=== PATIENT | male | born 1940 | race Caucasian/White ===

== ENCOUNTER 2022-02-23 15:21 | Emergency (ER) | payer OTHER ==
[~2022-02-23] VITALS: Ht 175.3 cm; Wt 88.5 kg
[2022-02-23 15:29] VITALS: BP 155/82
[2022-02-23] MEDS ORDERED: ACETAMINOPHEN EXTRA STRENGTH 500 MG TAB PO ONE (15:35)
[2022-02-23] MEDS ORDERED: ACETAMINOPHEN EXTRA STRENGTH 500 MG TAB ONE (15:38)
--- NOTE | 2022-02-23 15:40 | NUR ---
PATIENT TO LOBBY
--- NOTE | 2022-02-23 15:44 | NUR ---
PT BIBA STAND PIVOT TO BED 2
[2022-02-23 16:11] LABS: BASOPHILS % (AUTO) 0.2 % (0.0-2.0); EOSINOPHILS % (AUTO) 0.5 % (0.0-4.0); HEMATOCRIT 43.1 % (36-52); HEMOGLOBIN 14.5 g/dL (12.0-18.0); LYMPHOCYTES # (AUTO) 0.4 K/uL (2.0-11.5); LYMPHOCYTES % (AUTO) 7.1 % (20.5-51.1); MEAN CORPUSCULAR HEMOGLOBIN 31 pg (27-31); MEAN CORPUSCULAR HGB CONC 34 g/dL (33-37); MONOCYTES # (AUTO) 0.5 K/uL (0.8-1.0); MONOCYTES % (AUTO) 7.4 % (1.7-9.3); NEUTROPHILS # (AUTO) 5.2 K/uL (1.8-7.7); NEUTROPHILS % (AUTO) 84.8 % (42.2-75.2); PLATELET COUNT (AUTO) 140 K/uL (140-450); RED BLOOD CELL COUNT(AUTO) 4.73 MIL/uL (4.20-6.10); RED CELL DISTRIBUTION WIDTH 14.3 % (11.6-13.7); WHITE BLOOD COUNT (AUTO) 6.1 K/uL (4.8-10.8)
[2022-02-23 16:29] LABS: ANION GAP 13.8 (8-16); ASPARTATE AMINOTRANSFERASE 13 U/L (15-37); CHLORIDE 104 mmol/L (98-107); GLUCOSE 103 mg/dL (74-106); POTASSIUM 3.8 mmol/L (3.5-5.1); SODIUM SERUM 140 mmol/L (136-145); TOTAL BILIRUBIN 1.1 mg/dL (0.0-1.0); UREA NITROGEN, BLOOD 16 mg/dL (7-18)
[2022-02-23 16:34] LABS: MAGNESIUM 1.7 mg/dL (1.8-2.4)
--- NOTE | 2022-02-23 17:30 | NUR ---
COVID SWAB COLLECTED AND SENT TO LAB. ATTEMPTED TO URINATE, VIA URINAL WAS NOT SUCCESSFUL
--- NOTE | 2022-02-23 17:38 | NUR ---
81YR OLD MALE BIB EMS C/0 GEN WEAKNESS. PT WAS AT [facility], WAS WEAK STATES NOT FEELING WELL. WAS FEBRILE ON ARRIVAL. DENIES CP SOB . PT IS ON LABELER. SP02 91% ON RA . 2L NC APPLIED SP02 95%. NO DISTRESS NOTED. SKIN WARM PINK DRY. PT IS A&OX4. HOB ELEVATED. SIDE RAILS UP X2. BED AT LOWEST POSITION. NKDA DC STENT STROKE
--- NOTE | 2022-02-23 17:58 | NUR ---
20G IV CATH PLACED IN L AC
[2022-02-23 18:14] VITALS: BP 117/55
--- NOTE | 2022-02-23 18:23 | NUR ---
PT IS COVID POSITIVE
--- NOTE | 2022-02-23 18:30 | NUR ---
Patient does not wish to proceed with medical care recommended by . Patient given information related to possible complications, up to and including , which could occur as a result of leaving hospital at this time. Patient verbalizes understanding of risks involved leaving against medical advice. Patient has signed AMA form.
--- NOTE | 2022-02-23 18:30 | NUR ---
Chart checked and completed.
== END 2022-02-23 18:30 | disposition left against medical advice (07) ==
LOC: MED 15:21
DX: U07.1 COVID-19 (principal); Z86.73 Personal history of transient ischemic attack (TIA), and cerebral infarction without residual deficits
CPT/HCPCS: 36415; 71045; 80053; 83605; 83735; 83880; 84484; 85025; 87426; 93005; 99285; Q0092